=== PATIENT | male | born 1965 | race Caucasian/White ===

== ENCOUNTER 2017-01-26 13:38 | Inpatient (IN) ==
[2017-01-26 14:11] LABS: MANUAL DIFF NEEDED? NO
[2017-01-26 14:15] LABS: BASO% 0.5 % (0.0-0.8); EOS# 0.28 X1000 (0.0-0.7); EOS% 2.7 % (0.0-10.0); HEMATOCRIT 40.3 % (42.0-52.0); HEMOGLOBIN 14.3 g/dL (14.0-18.0); IMM GRAN# 0.14 X1000 (0.0-0.04); IMM GRAN% 1.4 % (0.0-0.5); LYMPH# 2.62 X1000 (1.2-3.4); LYMPH% 25.6 % (20.5-51.1); MCH 29.3 PG (27-31); MCHC 35.5 g/dL (33-37); MCV 82.6 FL (81-99); MONO# 0.88 X1000 (0.11-0.59); MONO% 8.6 % (1.7-9.3); MPV 10.1 FL (7.4-10.4); NEUT% 61.2 % (42.2-75.2); PLT 320 X1000 (130-400); RBC 4.88 XMIL (4.7-6.1)
[2017-01-26 14:50] LABS: AGAP 11; ALBUMIN 4.1 g/dL (3.5-5.0); ALKALINE PHOSPHATASE 124 U/L (32-122); BUN 17 mg/dL (8-22); CALCIUM 8.9 mg/dL (8.8-10.2); CHLORIDE 90 mmol/L (98-107); COSMO 274; GOT 10 U/L (10-34); GPT 19 U/L (10-44); POTASSIUM 4.2 mmol/L (3.5-5.1); SODIUM 127 mmol/L (136-145); TCO2 26 mmol/L (25-35); TOTAL BILIRUBIN 0.43 mg/dL (0.20-1.00); TOTAL PROTEIN 7.2 g/dL (6.3-8.3)
[2017-01-26] MEDS ORDERED: VANCOMYCIN IV PER PHARMACY MISC SCH ×3 (16:00→18:15)
[2017-01-26] MEDS ORDERED: LABETALOL IV ONE (16:02)
[2017-01-26] MEDS ORDERED: VANCOMYCIN 2,000 MG in NS 500 ML IV ONE (16:30)
[2017-01-26] MEDS ORDERED: NS 1,000 ML IV SCH (17:18)
[2017-01-26] MEDS ORDERED: NORCO-7.5 PO PRN (17:18)
[2017-01-26] MEDS ORDERED: TYLENOL PO PRN ×2 (17:18→18:49)
[2017-01-26] MEDS ORDERED: APRESOLINE IV PRN ×2 (17:23→22:38)
[2017-01-26] MEDS ORDERED: LOVENOX SUBQ SCH (17:30)
[2017-01-26] MEDS ORDERED: ROCEPHIN 1 GM in NS 50 ML IV SCH ×2 (17:30→23:00)
[2017-01-26] MEDS: PERCOCET-10 PO PRN (19:08)
[2017-01-26] MEDS: NEURONTIN PO SCH (20:55)
[2017-01-26] MEDS: LOVENOX SUBQ SCH (20:55)
[2017-01-26] MEDS: NS 1,000 ML IV SCH (20:56)
[2017-01-26] MEDS: LEVEMIR SUBQ SCH (20:56)
[2017-01-26] MEDS ORDERED: HUMULIN R SUBQ SCH ×2 (21:00)
[2017-01-27] MEDS: HUMULIN R SUBQ SCH ×5 (01:13→20:40)
[2017-01-27] MEDS: VANCOMYCIN 2,000 MG in NS 500 ML IV SCH ×2 (05:28→18:04)
[2017-01-27] MEDS: PERCOCET-10 PO PRN ×2 (05:32→20:33)
[2017-01-27 05:40] LABS: MANUAL DIFF NEEDED? NO
[2017-01-27 05:44] LABS: BASO% 0.6 % (0.0-0.8); EOS# 0.41 X1000 (0.0-0.7); EOS% 4.6 % (0.0-10.0); HEMATOCRIT 35.4 % (42.0-52.0); HEMOGLOBIN 12.3 g/dL (14.0-18.0); IMM GRAN# 0.09 X1000 (0.0-0.04); LYMPH# 2.99 X1000 (1.2-3.4); LYMPH% 33.5 % (20.5-51.1); MCH 29.3 PG (27-31); MCHC 34.7 g/dL (33-37); MCV 84.3 FL (81-99); MONO# 0.99 X1000 (0.11-0.59); MONO% 11.1 % (1.7-9.3); MPV 10.1 FL (7.4-10.4); NEUT% 49.2 % (42.2-75.2); PLT 263 X1000 (130-400)
[2017-01-27 05:56] LABS: HEMOGLOBIN A1C 9.6 % (4.8-6.0)
[2017-01-27 06:03] LABS: AGAP 10; ALBUMIN 3.3 g/dL (3.5-5.0); ALKALINE PHOSPHATASE 87 U/L (32-122); BUN 14 mg/dL (8-22); CALCIUM 8.3 mg/dL (8.8-10.2); CHLORIDE 100 mmol/L (98-107); COSMO 282; GOT 15 U/L (10-34); GPT 18 U/L (10-44); POTASSIUM 4.1 mmol/L (3.5-5.1); SODIUM 137 mmol/L (136-145); TCO2 27 mmol/L (25-35); TOTAL BILIRUBIN 0.21 mg/dL (0.20-1.00); TOTAL PROTEIN 5.9 g/dL (6.3-8.3)
[2017-01-27] MEDS ORDERED: NORVASC PO SCH (09:00)
[2017-01-27] MEDS: LEVEMIR SUBQ SCH ×2 (09:00→20:36)
[2017-01-27] MEDS: NEURONTIN PO SCH ×4 (09:00→20:34)
[2017-01-27] MEDS: PRINIVIL PO SCH (09:00)
[2017-01-27] MEDS: NORVASC PO SCH (09:01)
[2017-01-27] MEDS: NS 1,000 ML IV SCH ×2 (10:32→18:04)
[2017-01-27] MEDS: ATIVAN IV PRN ×2 (15:42→22:52)
[2017-01-27] MEDS: MAXIPIME 2 GM in NS 100 ML IV SCH (15:43)
[2017-01-27] MEDS: LOVENOX SUBQ SCH (18:04)
[2017-01-28] MEDS: MAXIPIME 2 GM in NS 100 ML IV SCH ×2 (04:02→17:02)
[2017-01-28] MEDS: ATIVAN IV PRN ×4 (05:03→22:47)
[2017-01-28] MEDS: PERCOCET-10 PO PRN ×4 (05:03→22:47)
[2017-01-28] MEDS: VANCOMYCIN 2,000 MG in NS 500 ML IV SCH ×2 (05:03→18:34)
[2017-01-28 05:37] LABS: MANUAL DIFF NEEDED? NO
[2017-01-28 05:42] LABS: BASO% 0.6 % (0.0-0.8); EOS# 0.45 X1000 (0.0-0.7); EOS% 5.1 % (0.0-10.0); HEMATOCRIT 36.8 % (42.0-52.0); HEMOGLOBIN 13.1 g/dL (14.0-18.0); IMM GRAN% 1.1 % (0.0-0.5); LYMPH# 3.15 X1000 (1.2-3.4); LYMPH% 35.4 % (20.5-51.1); MCH 29.7 PG (27-31); MCHC 35.6 g/dL (33-37); MCV 83.4 FL (81-99); MONO# 0.74 X1000 (0.11-0.59); MONO% 8.3 % (1.7-9.3); NEUT% 49.5 % (42.2-75.2); PLT 287 X1000 (130-400); RBC 4.41 XMIL (4.7-6.1)
[2017-01-28 06:24] LABS: AGAP 12; BUN 12 mg/dL (8-22); CALCIUM 8.7 mg/dL (8.8-10.2); CHLORIDE 102 mmol/L (98-107); COSMO 282; SODIUM 138 mmol/L (136-145); TCO2 24 mmol/L (25-35)
[2017-01-28] MEDS ORDERED: INSULIN PEN NEEDLES ONE (06:30)
[2017-01-28] MEDS: NS 1,000 ML IV SCH ×2 (06:35→12:19)
[2017-01-28] MEDS: HUMULIN R SUBQ SCH ×4 (06:45→20:31)
[2017-01-28] MEDS: NEURONTIN PO SCH ×4 (08:44→20:31)
[2017-01-28] MEDS: NORVASC PO SCH (08:44)
[2017-01-28] MEDS: PRINIVIL PO SCH (08:44)
[2017-01-28] MEDS: LEVEMIR SUBQ SCH ×2 (08:47→20:30)
[2017-01-28] MEDS: LOVENOX SUBQ SCH (18:37)
[2017-01-29] MEDS: NS 1,000 ML IV SCH (03:22)
[2017-01-29] MEDS: MAXIPIME 2 GM in NS 100 ML IV SCH ×2 (03:23→18:17)
[2017-01-29] MEDS: VANCOMYCIN 2,000 MG in NS 500 ML IV SCH ×2 (04:59→14:09)
[2017-01-29 05:18] LABS: MANUAL DIFF NEEDED? NO
[2017-01-29 05:24] LABS: BASO% 0.6 % (0.0-0.8); HEMATOCRIT 36.7 % (42.0-52.0); HEMOGLOBIN 13.1 g/dL (14.0-18.0); IMM GRAN# 0.12 X1000 (0.0-0.04); IMM GRAN% 1.2 % (0.0-0.5); LYMPH# 3.13 X1000 (1.2-3.4); LYMPH% 31.6 % (20.5-51.1); MCH 29.6 PG (27-31); MCHC 35.7 g/dL (33-37); MONO# 0.99 X1000 (0.11-0.59); MPV 9.6 FL (7.4-10.4); NEUT% 50.6 % (42.2-75.2); PLT 279 X1000 (130-400); RBC 4.42 XMIL (4.7-6.1)
[2017-01-29 05:47] LABS: AGAP 13; BUN 12 mg/dL (8-22); CALCIUM 8.4 mg/dL (8.8-10.2); CHLORIDE 101 mmol/L (98-107); COSMO 281; SODIUM 137 mmol/L (136-145); TCO2 23 mmol/L (25-35)
[2017-01-29] MEDS: PERCOCET-10 PO PRN ×4 (06:37→21:04)
[2017-01-29] MEDS: HUMULIN R SUBQ SCH ×4 (06:37→21:05)
[2017-01-29] MEDS: PRINIVIL PO SCH (08:35)
[2017-01-29] MEDS: NORVASC PO SCH (08:35)
[2017-01-29] MEDS: NEURONTIN PO SCH ×4 (08:35→21:04)
[2017-01-29] MEDS: LEVEMIR SUBQ SCH ×2 (08:35→21:05)
[2017-01-29 09:05] LABS: INR 0.92; PROTIME 9.6 Seconds (9.2-11.7)
[2017-01-29] MEDS: ATIVAN IV PRN ×4 (09:28→23:49)
[2017-01-29] MEDS ORDERED: NS 250 ML ONE (10:26)
[2017-01-29] MEDS: SANTYL OINT TOP SCH (14:10)
[2017-01-29] MEDS: LOVENOX SUBQ SCH (18:18)
[2017-01-29] MEDS: LOPRESSOR PO SCH (21:05)
[2017-01-30] MEDS: VANCOMYCIN 2,000 MG in NS 500 ML IV SCH (02:15)
[2017-01-30] MEDS: PERCOCET-10 PO PRN ×4 (02:29→21:17)
[2017-01-30] MEDS: MAXIPIME 2 GM in NS 100 ML IV SCH (04:31)
[2017-01-30 05:43] LABS: MANUAL DIFF NEEDED? NO
[2017-01-30] MEDS: ATIVAN IV PRN ×4 (05:49→21:17)
[2017-01-30 06:04] LABS: BASO% 0.6 % (0.0-0.8); EOS# 0.47 X1000 (0.0-0.7); EOS% 4.5 % (0.0-10.0); HEMATOCRIT 35.3 % (42.0-52.0); HEMOGLOBIN 12.2 g/dL (14.0-18.0); IMM GRAN# 0.16 X1000 (0.0-0.04); IMM GRAN% 1.5 % (0.0-0.5); LYMPH# 3.27 X1000 (1.2-3.4); LYMPH% 31.3 % (20.5-51.1); MCHC 34.6 g/dL (33-37); MONO# 0.97 X1000 (0.11-0.59); MONO% 9.3 % (1.7-9.3); MPV 9.9 FL (7.4-10.4); NEUT% 52.8 % (42.2-75.2); PLT 281 X1000 (130-400)
[2017-01-30 06:23] LABS: AGAP 11; BUN 14 mg/dL (8-22); CALCIUM 8.4 mg/dL (8.8-10.2); CHLORIDE 100 mmol/L (98-107); COSMO 285; POTASSIUM 4.2 mmol/L (3.5-5.1); SODIUM 138 mmol/L (136-145); TCO2 27 mmol/L (25-35)
[2017-01-30] MEDS: HUMULIN R SUBQ SCH ×4 (06:59→21:21)
[2017-01-30] MEDS ORDERED: INSULIN PEN NEEDLES ONE (08:44)
[2017-01-30] MEDS: LEVEMIR SUBQ SCH ×2 (09:06→21:17)
[2017-01-30] MEDS: PRINIVIL PO SCH (09:06)
[2017-01-30] MEDS: NORVASC PO SCH (09:07)
[2017-01-30] MEDS: NEURONTIN PO SCH ×4 (09:07→21:16)
[2017-01-30] MEDS: SANTYL OINT TOP SCH (09:07)
[2017-01-30] MEDS: LOPRESSOR PO SCH ×2 (09:07→21:16)
[2017-01-30] MEDS: KEFZOL 2 GM/D5W 2 GM/50 ML IVPB IV SCH ×2 (09:13→17:30)
[2017-01-30] MEDS: LOVENOX SUBQ SCH (18:51)
[2017-01-31] MEDS: KEFZOL 2 GM/D5W 2 GM/50 ML IVPB IV SCH ×3 (00:51→17:26)
[2017-01-31] MEDS: PERCOCET-10 PO PRN ×5 (04:20→22:29)
[2017-01-31] MEDS: ATIVAN IV PRN ×4 (04:23→22:29)
[2017-01-31] MEDS: HUMULIN R SUBQ SCH ×4 (06:14→21:26)
[2017-01-31 06:22] LABS: MANUAL DIFF NEEDED? NO
[2017-01-31 06:33] LABS: BASO% 0.5 % (0.0-0.8); EOS# 0.62 X1000 (0.0-0.7); EOS% 5.4 % (0.0-10.0); HEMATOCRIT 36.1 % (42.0-52.0); HEMOGLOBIN 12.4 g/dL (14.0-18.0); IMM GRAN# 0.32 X1000 (0.0-0.04); IMM GRAN% 2.8 % (0.0-0.5); LYMPH# 2.98 X1000 (1.2-3.4); MCH 28.9 PG (27-31); MCHC 34.3 g/dL (33-37); MCV 84.1 FL (81-99); MONO# 1.06 X1000 (0.11-0.59); MONO% 9.3 % (1.7-9.3); MPV 9.9 FL (7.4-10.4); PLT 267 X1000 (130-400); RBC 4.29 XMIL (4.7-6.1)
[2017-01-31] MEDS: NEURONTIN PO SCH ×4 (08:22→21:27)
[2017-01-31] MEDS: NORVASC PO SCH (08:22)
[2017-01-31] MEDS: PRINIVIL PO SCH (08:23)
[2017-01-31] MEDS: LOPRESSOR PO SCH ×2 (08:24→21:25)
[2017-01-31] MEDS: LEVEMIR SUBQ SCH ×2 (08:50→21:25)
[2017-01-31] MEDS: SANTYL OINT TOP SCH (13:12)
[2017-01-31] MEDS: LOVENOX SUBQ SCH (18:39)
[2017-02-01] MEDS: PERCOCET-10 PO PRN ×3 (03:47→13:42)
[2017-02-01] MEDS: KEFZOL 2 GM/D5W 2 GM/50 ML IVPB IV SCH ×3 (04:59→21:49)
[2017-02-01] MEDS: ATIVAN IV PRN ×3 (05:24→22:00)
[2017-02-01 05:52] LABS: MANUAL DIFF NEEDED? NO
[2017-02-01 05:58] LABS: BASO% 0.5 % (0.0-0.8); EOS# 0.75 X1000 (0.0-0.7); EOS% 6.8 % (0.0-10.0); HEMATOCRIT 35.9 % (42.0-52.0); HEMOGLOBIN 12.3 g/dL (14.0-18.0); IMM GRAN# 0.38 X1000 (0.0-0.04); IMM GRAN% 3.5 % (0.0-0.5); LYMPH# 2.85 X1000 (1.2-3.4); MCH 28.9 PG (27-31); MCHC 34.3 g/dL (33-37); MCV 84.3 FL (81-99); MONO# 0.95 X1000 (0.11-0.59); MONO% 8.7 % (1.7-9.3); MPV 9.8 FL (7.4-10.4); NEUT% 54.5 % (42.2-75.2); PLT 279 X1000 (130-400); RBC 4.26 XMIL (4.7-6.1)
[2017-02-01 06:17] LABS: AGAP 5; BUN 17 mg/dL (8-22); CALCIUM 9.1 mg/dL (8.8-10.2); CHLORIDE 100 mmol/L (98-107); COSMO 284; SODIUM 137 mmol/L (136-145); TCO2 32 mmol/L (25-35)
[2017-02-01] MEDS: HUMULIN R SUBQ SCH ×4 (08:03→21:51)
[2017-02-01] MEDS ORDERED: ZOFRAN IV PRN (08:22)
[2017-02-01] MEDS: LEVEMIR SUBQ SCH ×2 (08:58→21:50)
[2017-02-01] MEDS: LOPRESSOR PO SCH ×2 (08:58→21:48)
[2017-02-01] MEDS: PRINIVIL PO SCH (08:58)
[2017-02-01] MEDS: NORVASC PO SCH (08:58)
[2017-02-01] MEDS: NEURONTIN PO SCH ×4 (08:58→21:48)
[2017-02-01] MEDS: SANTYL OINT TOP SCH (09:02)
[2017-02-01] MEDS: OXY IR PO PRN ×2 (18:28→21:40)
[2017-02-01] MEDS: LOVENOX SUBQ SCH (18:28)
[2017-02-02] MEDS: KEFZOL 2 GM/D5W 2 GM/50 ML IVPB IV SCH ×3 (04:58→22:29)
[2017-02-02 06:08] LABS: MANUAL DIFF NEEDED? NO
[2017-02-02 06:23] LABS: BASO% 0.4 % (0.0-0.8); EOS# 0.77 X1000 (0.0-0.7); EOS% 6.7 % (0.0-10.0); HEMATOCRIT 37.2 % (42.0-52.0); HEMOGLOBIN 12.6 g/dL (14.0-18.0); IMM GRAN# 0.41 X1000 (0.0-0.04); IMM GRAN% 3.6 % (0.0-0.5); LYMPH# 3.19 X1000 (1.2-3.4); LYMPH% 27.9 % (20.5-51.1); MCH 28.8 PG (27-31); MCHC 33.9 g/dL (33-37); MCV 85.1 FL (81-99); MONO# 1.06 X1000 (0.11-0.59); MONO% 9.3 % (1.7-9.3); MPV 9.9 FL (7.4-10.4); NEUT% 52.1 % (42.2-75.2); PLT 276 X1000 (130-400); RBC 4.37 XMIL (4.7-6.1)
[2017-02-02 06:35] LABS: AGAP 11; BUN 17 mg/dL (8-22); CALCIUM 8.5 mg/dL (8.8-10.2); CHLORIDE 100 mmol/L (98-107); COSMO 288; POTASSIUM 4.4 mmol/L (3.5-5.1); SODIUM 139 mmol/L (136-145); TCO2 28 mmol/L (25-35)
[2017-02-02] MEDS: HUMULIN R SUBQ SCH ×4 (06:38→22:31)
[2017-02-02] MEDS: ATIVAN IV PRN ×4 (06:42→21:00)
[2017-02-02] MEDS: OXY IR PO PRN ×4 (06:49→21:00)
[2017-02-02] MEDS: LEVEMIR SUBQ SCH ×2 (09:34→22:31)
[2017-02-02] MEDS: LOPRESSOR PO SCH ×2 (09:36→22:32)
[2017-02-02] MEDS: NEURONTIN PO SCH ×4 (09:36→22:29)
[2017-02-02] MEDS: PRINIVIL PO SCH (09:36)
[2017-02-02] MEDS: NORVASC PO SCH (09:36)
[2017-02-02] MEDS: SANTYL OINT TOP SCH (09:39)
[2017-02-02] MEDS: LOVENOX SUBQ SCH ×2 (18:09→18:11)
[2017-02-03] MEDS: KEFZOL 2 GM/D5W 2 GM/50 ML IVPB IV SCH ×3 (04:00→20:08)
[2017-02-03] MEDS: OXY IR PO PRN ×4 (04:04→20:06)
[2017-02-03 06:13] LABS: MANUAL DIFF NEEDED? NO
[2017-02-03 06:18] LABS: BASO% 0.5 % (0.0-0.8); EOS# 0.59 X1000 (0.0-0.7); EOS% 5.2 % (0.0-10.0); HEMATOCRIT 35.8 % (42.0-52.0); HEMOGLOBIN 12.4 g/dL (14.0-18.0); IMM GRAN# 0.18 X1000 (0.0-0.04); IMM GRAN% 1.6 % (0.0-0.5); LYMPH# 2.98 X1000 (1.2-3.4); LYMPH% 26.1 % (20.5-51.1); MCH 29.5 PG (27-31); MCHC 34.6 g/dL (33-37); MONO# 1.13 X1000 (0.11-0.59); MONO% 9.9 % (1.7-9.3); MPV 9.6 FL (7.4-10.4); NEUT% 56.7 % (42.2-75.2); PLT 250 X1000 (130-400); RBC 4.21 XMIL (4.7-6.1)
[2017-02-03 06:45] LABS: AGAP 12; BUN 17 mg/dL (8-22); CHLORIDE 101 mmol/L (98-107); COSMO 290; POTASSIUM 4.3 mmol/L (3.5-5.1); SODIUM 140 mmol/L (136-145); TCO2 27 mmol/L (25-35)
[2017-02-03] MEDS: HUMULIN R SUBQ SCH ×4 (07:06→20:06)
[2017-02-03] MEDS: ATIVAN IV PRN ×3 (07:09→20:06)
[2017-02-03] MEDS: LEVEMIR SUBQ SCH ×2 (09:46→20:07)
[2017-02-03] MEDS: NORVASC PO SCH (09:46)
[2017-02-03] MEDS: PRINIVIL PO SCH (09:46)
[2017-02-03] MEDS: NEURONTIN PO SCH ×4 (09:46→20:19)
[2017-02-03] MEDS: LOPRESSOR PO SCH ×2 (09:46→20:08)
[2017-02-03] MEDS: SANTYL OINT TOP SCH (09:50)
[2017-02-03] MEDS: LOVENOX SUBQ SCH (18:16)
[2017-02-04] MEDS: OXY IR PO PRN ×3 (04:03→12:57)
[2017-02-04] MEDS: ATIVAN IV PRN ×2 (04:03→11:52)
[2017-02-04] MEDS: KEFZOL 2 GM/D5W 2 GM/50 ML IVPB IV SCH ×2 (04:32→12:51)
[2017-02-04] MEDS: HUMULIN R SUBQ SCH ×2 (06:31→11:14)
[2017-02-04 06:44] LABS: HEMATOCRIT 36.7 % (42.0-52.0); HEMOGLOBIN 12.5 g/dL (14.0-18.0); MCH 29.4 PG (27-31); MCHC 34.1 g/dL (33-37); MCV 86.4 FL (81-99); MPV 9.9 FL (7.4-10.4); RBC 4.25 XMIL (4.7-6.1)
[2017-02-04 07:01] LABS: AGAP 10; BUN 16 mg/dL (8-22); CALCIUM 8.8 mg/dL (8.8-10.2); CHLORIDE 99 mmol/L (98-107); COSMO 280; SODIUM 136 mmol/L (136-145); TCO2 27 mmol/L (25-35)
[2017-02-04] MEDS: LEVEMIR SUBQ SCH (08:35)
[2017-02-04] MEDS: PRINIVIL PO SCH (08:36)
[2017-02-04] MEDS: NEURONTIN PO SCH ×2 (08:36→12:51)
[2017-02-04] MEDS: LOPRESSOR PO SCH (08:36)
[2017-02-04] MEDS: NORVASC PO SCH (08:36)
[2017-02-04] MEDS: SANTYL OINT TOP SCH (08:37)
[2017-02-04 11:59] VITALS: BP 136/78
== END 2017-02-04 15:06 ==
LOC: ED 13:38 → 4N 17:39 → SUATTDRO 17:39 → 4N 01-30 17:08
PROVIDERS: ATTEND Internal Medicine